=== PATIENT | male | born 1970 | race Caucasian/White ===

== ENCOUNTER 2023-01-07 10:47 | Day surgery (SDC) | payer SELFPAY ==
[2023-01-07] VITALS (7 sets, daily range): BP systolic 105–126; BP diastolic 79–93; PULSE 75–92; RESP 18; TEMP 36.2–36.9; O2SAT 95–98; BMI 31.8
[2023-01-07] MEDS: Lactated Ringers 1,000 ML 15 ML IV (11:30)
--- NOTE | 2023-01-07 11:45 | EGD_PTH ---
PATIENT: JUAN JOSE JUAREZ LOC: EN U#:[id number] AGE/SX: 52/M ROOM: RE01/07/[address]: Dr. Maurizio Rich DO : 1970 BED: DIS: 01/07/2023 SPEC #: [id number] RECD: 01/07/23 13:48 STATUS: ZIA RESarah #: [id number] MICKY: 01/07/23 11:[address]: Maurizio Rich DEPT: SURGICAL PATHOLOGY RECD BY: Génesis Basihr ENTERED: 01/08/23 10:39 SP TYPE: EGD BIOPSY OT DR: Dr. Adán Juarez DO Tissues: A - Duodenum, NOS B - Gastric mucous membrane Procedures: Surgery Specimen Level IV HEADER OPERATION: Colonoscopy, EGD ([facility]), biopsy PRE-OP DIAGNOSIS: Acid reflux, screening TISSUE SUBMITTED: A ? Duodenum biopsy, B ? Gastric body biopsy MICROSCOPIC DIAGNOSIS A. Duodenum, biopsy: Fragments of duodenal mucosa with focal mild villous blunting and nonspecific chronic inflammation. B. Gastric body, biopsy: Mild gastritis. See microscopic description and comment. SJ:luci 01/09/2023 COMMENT B. The results of immunohistochemistry for Helicobacter pylori will be reported separately ([id number]). Correlation with clinical, endoscopic findings and appropriate follow up are necessary. MICROSCOPIC DESCRIPTION Slides are reviewed. B. The specimen shows fragments of gastric mucosa with chronic inflammatory cell infiltrates in the lamina propria consisting of lymphocytes and plasma cells, consistent with mild chronic gastritis. GROSS DESCRIPTION A - Received in fixative is one container labeled with the patient's name and designated duodenum biopsy. The specimen consists of multiple irregular fragments of light gayle soft tissue that in aggregate measure 1.0 x 0.3 x 0.1 cm. The specimen is totally submitted in one cassette. B - Received in fixative is one container labeled with the patient's name and designated gastric body. The specimen consists of multiple irregular fragments of light gayle soft tissue that in aggregate measure 1.0 x 0.5 x 0.1 cm. The specimen is totally submitted in one cassette. / ROB:luci 01/08/23 TC:3 CPT: 49343 x2
--- NOTE | 2023-01-07 11:45 | IMM_PTH ---
PATIENT: JUAN JOSE JUAREZ LOC: EN U#:[id number] AGE/SX: 52/M ROOM: RE01/07/[address]: Dr. Maurizio Rich DO : 1970 BED: DIS: 01/07/2023 SPEC #: [id number] RECD: 01/08/23 14:05 STATUS: ZIA REQ #: [id number] MICKY: 01/07/23 11:[address]: Maurizio Rich DEPT: IMMUNOHISTOCHEMISTRY RECD BY: Michelle Juarez ENTERED: 01/08/23 14:06 SP TYPE: IMMUNO OTHR DR: Dr. Adán Juarez DO Tissues: B - Stomach, NOS Procedures: H Pylori (initial) PHYSICIAN & INSTITUTION [place] [address] SPECIMEN INFORMATION: Tissue Source: B ? Gastric body Clinical Info: Acid reflux, screening Specimen Number: [id number] CPT code: 88749 METHODOLOGY: Deparaffinized sections of prefer/formalin-fixed tissue or PAP/DQ stained slides are incubated with monoclonal/polyclonal antibodies/oligonucleotide probes. Localization is made via biotin free immunoperoxidase method. Appropriate controls are performed and reacted as expected. Results on target cell population are indicated in the following table: RESULTS: ANTIBODY / CLONE RESULT Block B H Pylori (polyclonal) negative These tests were developed and their performance characteristics determined by [facility]. They may not have been cleared or approved by the U.S. Food and Drug Administration. The FDA has determined that such clearance or approval is not necessary. The above immunohistochemical/dualISH markers are ordered and reviewed by the Pathologist. INTERPRETATION: B. Gastric body, biopsy: Negative for Helicobacter pylori organisms. SJ:luci 01/09/2023
--- NOTE | 2023-01-07 11:55 | HP.PCM_ITS ---
History and Physical Date of Admission: 01/07/23 52 M who presents to the office today to establish with GI for burning sensation starting at epigastrium and radiating upward behind sternum. started august 2022 on omeprazole 20 mg bid w/o relief no nausea, sore throat, cough ok when he eats, worse when stomach is empty, worse with [place] takes lots of pepto bismol but not actually helping occas diarrhea, may be related to what he eats, not problematic. no contstipation no melena or hematochezia no early satiety remote hx of egd, no prior colonoscopy started cpap february 2022 lost 20 lbs intentionally in 2021 1998 GI and other symptoms, eventually all symptoms resolved w/ start of psychiatric meds, has been on alprazolam, amitriptyline and perphenazine since then. 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 ROS Const Constitutional: No fatigue ENT ENT: No difficulty swallowing Gastro GI: No abdominal pain, belching, bloating, change in bowel habits, change in stool character, coffee ground emesis, constipation, cramping, diarrhea, heartburn, difficulty swallowing, feeling full early, excessive flatus, incontinent of stools, Vomiting blood/hematemesis, Blood in stool, loose stools, Black,tarry stools, nausea/dyspepsia, pain with swallowing, vomiting or other Musc Musculoskeletal: No joint pain Skin Skin: No yellowing of the eye or itchy eyes Psych Psychiatric: Positive for anxiety and No depression Endo Endocrine: No fatigue Aller/Imm Allergy/Immunologic: No itchy eyes Dipak/Lymp Hematologic/Lymphatic: No easy bleeding or easy bruising Exam Const General: cooperative and comfortable Orientation: alert, awake and oriented x3 HENMT Head: normal to inspection Eyes Sclera: sclerae normal Chest Chest palpation & inspection: normal inspection of the chest Resp Effort & Inspection: normal respiratory effort GI Inspection: obesity Palpation: soft, no hepatosplenomegaly, no masses and nontender Skin General: no rashes or lesions noted Psych Mood: euthymic mood Assessment and Plan Assessment and Plan (1) Acid reflux: ?Status:?Acute ?Plan: 52 yr old male with burning sensation from epigastrium which radiates up behind the sternum, not quite to the throat. Increase omeprazole to 40 mg BID Schedule EGD to eval for esophagitis, Ronquillo's, PUD, H pylori, gastritis, bile reflux, as well as screening colonoscopy ? ? ? Orders: Orders EGD 01/07/23 K21.9 - Gastro-esophageal reflu x disease without esophagitis ? Medications: New omeprazole 40 mg? PO BID 60 caps 1RF ? ? Discontinued omeprazole ?? Discontinued Reason:? Order Changed 20 mg? PO BID ? ? I have examined the patient and the H&P has been reviewed. There are no clinical changes since date of exam.
--- NOTE | 2023-01-07 12:59 | OP.EGD_ITS ---
Patient Name: Humberto Nazario Procedure Date: 01/07/2023 12:29 PM Date of : 1970 Age: 52 Procedure: Upper GI endoscopy Indications: Epigastric abdominal pain, Dyspepsia Providers: Maurizio Rich DO Medicines: Monitored Anesthesia Care Patient Profile: This is a 52 year old male. Refer to note in patient chart for documentation of history and physical. Patient has symptoms of chronic epigastric abdominal pain and chronic dyspepsia. Complications: No immediate complications. Procedure: Pre-Anesthesia Assessment: - Prior to the procedure, a History and Physical was performed, and patient medications and allergies were reviewed. The patient is competent. The risks and benefits of the procedure and the sedation options and risks were discussed with the patient. All questions were answered and informed consent was obtained. Patient identification and proposed procedure were verified by the physician in the pre-procedure area. Mental Status Examination: alert and oriented. Airway Examination: normal oropharyngeal airway and neck mobility. Respiratory Examination: clear to auscultation. CV Examination: normal. Prophylactic Antibiotics: The patient does not require prophylactic antibiotics. Prior Anticoagulants: The patient has taken no previous anticoagulant or antiplatelet agents. After reviewing the risks and benefits, the patient was deemed in satisfactory condition to undergo the procedure. The anesthesia plan was to use monitored anesthesia care (MAC). Immediately prior to administration of medications, the patient was re-assessed for adequacy to receive sedatives. The heart rate, respiratory rate, oxygen saturations, blood pressure, adequacy of pulmonary ventilation, and response to care were monitored throughout the procedure. The physical status of the patient was re-assessed after the procedure. After obtaining informed consent, the endoscope was passed under direct vision. Throughout the procedure, the patient's blood pressure, pulse, and oxygen saturations were monitored continuously. The colonoscope was introduced through the mouth, and advanced to the second part of duodenum. The upper GI endoscopy was accomplished without difficulty. The patient tolerated the procedure well. Scope In: 12:37:47 PM Scope Out: 12:40:48 PM Total Procedure Duration Time 0 hours 3 minutes 1 second Findings: The examined esophagus was normal. Patchy moderate inflammation characterized by congestion (edema), erosions, erythema and shallow ulcerations was found in the stomach. Biopsies were taken with a cold forceps for histology. Verification of patient identification for the specimen was done. No gross lesions were noted in the second portion of the duodenum. Biopsies were taken with a cold forceps for histology. Verification of patient identification for the specimen was done. Estimated blood loss was minimal. Impression: - Normal esophagus. - Gastritis. Biopsied. - No gross lesions in the second portion of the duodenum. Biopsied. Recommendation: - Discharge patient to home. - Resume previous diet. - Continue present medications. - Await pathology results. Procedure Code(s): --- Professional --- 77884, Esophagogastroduodenoscopy, flexible, transoral; with biopsy, single or multiple CPT copyright 2017 [employer]. All rights reserved. The codes documented in this report are preliminary and upon data control clerk review may be revised to meet current compliance requirements. Maurizio Rich DO 01/07/2023 12:58:44 PM This report has been signed electronically. Number of Addenda: 0 Note Initiated On: 01/07/2023 12:29 PM
--- NOTE | 2023-01-07 12:59 | OP.CCLET_ITS ---
01/07/2023 Adán Juarez Re : Upper GI endoscopy procedure for Humberto Nazario Dear Ann This procedure was performed on Saturday, January 07, 2023. My impressions and recommendations are as follows: Impressions : - Normal esophagus. - Gastritis. Biopsied. - No gross lesions in the second portion of the duodenum. Biopsied. Recommendations : - Discharge patient to home. - Resume previous diet. - Continue present medications. - Await pathology results. My findings are described in the full procedure note, which is enclosed. If I can be of further assistance, please feel free to contact me at . Sincerely, Maurizio Rich, 01/07/2023 12:58:44 PM This report has been signed electronically.
--- NOTE | 2023-01-07 13:00 | OP.COLON_ITS ---
Patient Name: Humberto Nazario Procedure Date: 01/07/2023 12:40 PM Date of : 1970 Age: 52 Procedure: Colonoscopy Indications: Screening for colorectal malignant neoplasm Providers: Maurizio Rich DO Medicines: Monitored Anesthesia Care Patient Profile: This is a 52 year old male. Refer to note in patient chart for documentation of history and physical. Patient has symptoms of chronic epigastric abdominal pain and chronic dyspepsia. Last Colonoscopy: date unknown. Unable to locate last colonoscopy report. Complications: No immediate complications. Procedure: Pre-Anesthesia Assessment: - Prior to the procedure, a History and Physical was performed, and patient medications and allergies were reviewed. The patient is competent. The risks and benefits of the procedure and the sedation options and risks were discussed with the patient. All questions were answered and informed consent was obtained. Patient identification and proposed procedure were verified by the physician in the pre-procedure area. Mental Status Examination: alert and oriented. Airway Examination: normal oropharyngeal airway and neck mobility. Respiratory Examination: clear to auscultation. CV Examination: normal. Prophylactic Antibiotics: The patient does not require prophylactic antibiotics. Prior Anticoagulants: The patient has taken no previous anticoagulant or antiplatelet agents. After reviewing the risks and benefits, the patient was deemed in satisfactory condition to undergo the procedure. The anesthesia plan was to use monitored anesthesia care (MAC). Immediately prior to administration of medications, the patient was re-assessed for adequacy to receive sedatives. The heart rate, respiratory rate, oxygen saturations, blood pressure, adequacy of pulmonary ventilation, and response to care were monitored throughout the procedure. The physical status of the patient was re-assessed after the procedure. After I obtained informed consent, the scope was passed under direct vision. Throughout the procedure, the patient's blood pressure, pulse, and oxygen saturations were monitored continuously. The colonoscope was introduced through the anus and advanced to the cecum, identified by appendiceal orifice and ileocecal valve. The ileocecal valve, appendiceal orifice, and rectum were photographed. Scope In: 12:42:33 PM Scope Withdrawal Time 0 hours 7 minutes 46 seconds Scope Out: 12:52:50 PM Total Procedure Duration Time 0 hours 10 minutes 17 seconds Findings: The perianal and digital rectal examinations were normal. A few small-mouthed diverticula were found in the recto-sigmoid colon and sigmoid colon. The exam was otherwise without abnormality on direct and retroflexion views. Impression: - Diverticulosis in the recto-sigmoid colon and in the sigmoid colon. - The examination was otherwise normal on direct and retroflexion views. - No specimens collected. Recommendation: - Discharge patient to home. - Resume previous diet. - Continue present medications. - Repeat colonoscopy in 10 years for screening purposes. Procedure Code(s): --- Professional --- G0121, Colorectal cancer screening; colonoscopy on individual not meeting criteria for high risk CPT copyright 2017 [employer]. All rights reserved. The codes documented in this report are preliminary and upon multifocal lens assembler review may be revised to meet current compliance requirements. Maurizio Rich DO 01/07/2023 1:00:23 PM This report has been signed electronically. Number of Addenda: 0 Note Initiated On: 01/07/2023 12:40 PM
--- NOTE | 2023-01-07 13:01 | OP.CCLET_ITS ---
01/07/2023 Adán Juarez Re : Colonoscopy procedure for Humberto Nazario Dear Ann This procedure was performed on Saturday, January 07, 2023. My impressions and recommendations are as follows: Impressions : - Diverticulosis in the recto-sigmoid colon and in the sigmoid colon. - The examination was otherwise normal on direct and retroflexion views. - No specimens collected. Recommendations : - Discharge patient to home. - Resume previous diet. - Continue present medications. - Repeat colonoscopy in 10 years for screening purposes. My findings are described in the full procedure note, which is enclosed. If I can be of further assistance, please feel free to contact me at . Sincerely, Maurizio Rich, 01/07/2023 1:00:23 PM This report has been signed electronically.
== END 2023-01-07 13:56 | disposition home or self-care (01) ==
LOC: EN 10:48 → AC 10:52
PROVIDERS: PCP Family Medicine; Referring Provider Family Medicine; Visit Provider Internal Medicine Gastroenterology
PROC: 0DJD8ZZ Inspection of Lower Intestinal Tract, Via Natural or Artificial Opening Endoscopic (ICD-10-PCS; CPT 45378; principal; 2023-01-07 11:40)
DX: Z12.11 Encounter for screening for malignant neoplasm of colon (principal); K21.9 Gastro-esophageal reflux disease without esophagitis; K57.30 Diverticulosis of large intestine without perforation or abscess without bleeding; K29.70 Gastritis, unspecified, without bleeding; K25.9 Gastric ulcer, unspecified as acute or chronic, without hemorrhage or perforation; K29.80 Duodenitis without bleeding; E66.9 Obesity, unspecified; Z79.899 Other long term (current) drug therapy
CPT/HCPCS: 45378; 43239; 88305; 88342; J2405

== ENCOUNTER → 2023-01-23 | Outpatient (CLI) | payer SELFPAY ==
[2023-01-26 16:09] LABS: Endomysial Antibody IgA Negative (Negative); Immunoglobulin A 74 mg/dL (90-386)
[2023-01-26 19:41] LABS: t-Transglutaminase IgA <2 U/mL (0-3)
== END | disposition home or self-care (01) ==
PROVIDERS: PCP Family Medicine; Referring Provider Nurse Practitioner Adult Health; Visit Provider Nurse Practitioner Adult Health
DX: K63.9 Disease of intestine, unspecified (principal)
CPT/HCPCS: 36415; 82784; 83516; 86255

== ENCOUNTER → 2023-01-27 | Outpatient (CLI) | payer SELFPAY ==
[2023-01-29 16:09] LABS: Immunoglobulin G 973 mg/dL (603-1613)
== END | disposition home or self-care (01) ==
PROVIDERS: PCP Family Medicine; Referring Provider Nurse Practitioner Adult Health; Visit Provider Nurse Practitioner Adult Health
DX: K63.9 Disease of intestine, unspecified (principal)
CPT/HCPCS: 36415; 82784; 83516